=== PATIENT | female | born 1970 | race Caucasian/White ===

== ENCOUNTER 2019-05-09 01:05 | Outpatient (CLI) | payer MEDICARE, MEDICAID, SELFPAY ==
--- NOTE | 2019-05-09 17:30 | DI.MAMMO_ITS ---
EXAM: MG MAMMO SCREENING CLINICAL HISTORY: Screening, Z12.39. TECHNIQUE: Mammograms were interpreted according to the usual protocol including computer analysis w [employer] CAD system, tomosynthesis and C-view imaging. COMPARISON: February 2018 FINDINGS: Breasts are of moderate density with fairly symmetrical distribution of fibroglandular tissue. No do minant mass or clumped microcalcification is identified in either breast. Current examination compar ed with previous examinations including February 2018 and there has been no gross interval change in appe arance in comparison with the previous studies IMPRESSION: No specific evidence of malignancy at this time. Routine screening examinations are suggested at yea rly intervals due to the family history of breast carcinoma. Category 1, breast density category B. BI-RADS Cat 1 - Negative Breast Density - Category B - Scattered areas of fibroglandular density
== END 2019-05-09 01:25 ==
PROVIDERS: PCP Family Medicine; Visit Provider Nurse Practitioner Women's Health
DX: Z12.31 Encounter for screening mammogram for malignant neoplasm of breast (principal)
CPT/HCPCS: 77063; 77067

== ENCOUNTER 2020-03-18 13:37 | Outpatient (REF) | payer MEDICARE, MEDICAID, SELFPAY ==
--- NOTE | 2020-03-18 13:20 | PAPFT_PTH ---
PATIENT: Thao Sewell LOC: [facility] U#:[id number] AGE/SX: 50/F ROOM: RE03/18/[address]: SAMREEN Hanna : 1970 BED: DIS: 03/18/2020 SPEC #: [id number] RECD: 03/18/20 17:21 STATUS: DYLAN REMiguel Ángel #: [id number] MACEY: 03/18/20 13:[address]: Alejandra Faustin DEPT: [facility] Cytology RECD BY: Laverne George ENTERED: 03/18/20 17:21 SP TYPE: PAPFT OTHR DR: Tariq Barrientos Tissues: 1 - CX/ENDOCX FOR PAP SMEARS Procedures: PAP THIN PREP/[facility] Screening HPV DNA PROBE Comments: [id number]
== END 2020-03-18 13:57 ==
LOC: LBN 13:37
PROVIDERS: PCP Family Medicine; Visit Provider Nurse Practitioner Family
DX: Z12.4 Encounter for screening for malignant neoplasm of cervix (principal); Z11.51 Encounter for screening for human papillomavirus (HPV)
CPT/HCPCS: 88142; 87624

== ENCOUNTER 2020-06-10 00:36 | Outpatient (CLI) | payer MEDICARE, MEDICAID, SELFPAY ==
--- NOTE | 2020-06-10 15:07 | DI.MAMMO_ITS ---
EXAM: MG MAMMO SCREENING CLINICAL HISTORY: screening TECHNIQUE: Mammograms were interpreted according to the usual protocol including computer analysis w [employer] CAD system, tomosynthesis and C-view imaging. COMPARISON: FINDINGS: Breasts are of moderate density with fairly symmetrical distribution of fibroglandular tissue. No do minant mass or clumped microcalcification is identified in either breast. The current examination is compared with previous examinations including April 2019 and there has been no gross interval ch bee in appearance in comparison with the prior studies. IMPRESSION: No specific evidence of malignancy at this time. Routine screening examinations are suggested at yea rly intervals due to the family history of breast carcinoma. BI-RADS Category 1 - Negative Breast Density - Category B - Scattered areas of fibroglandular density
== END 2020-06-10 00:56 ==
PROVIDERS: PCP Family Medicine; Visit Provider Nurse Practitioner Family
DX: Z12.31 Encounter for screening mammogram for malignant neoplasm of breast (principal); Z80.3 Family history of malignant neoplasm of breast
CPT/HCPCS: 77063; 77067

== ENCOUNTER 2020-12-08 02:40 | Outpatient (CLI) | payer MEDICARE, MEDICAID, SELFPAY ==
--- NOTE | 2020-12-08 06:45 | DI.US_ITS ---
EXAM: US ABD PELV TRANSVAG NON-OB CLINICAL HISTORY: abd and pelvic pain TECHNIQUE: Ultrasound of the pelvis was performed both transabdominal and transvaginal. COMPARISON: FINDINGS: UTERUS: Measures 6.5 cm length x 2.2 cm AP x 3.8 cm wide. There are no uterine fibroids. Endometrial thickness measures multiple small hyperechoic foci are noted in the endometrium, either p olyps or possibly calcifications appear. There is no fluid in the endometrial canal. CERVIX: 4 millimeter nabothian cyst RIGHT OVARY: Measures 2.9 x 2.1 x 1.6 cm No significant cysts nor masses evident in the right ovary. Small follicular cysts noted. Less than cm. LEFT OVARY: Measures 3 x 2.7 x 1.6 cm No significant cysts nor masses evident in the left ovary. CUL-DE-SAC: No free fluid evident. ABDOMEN: There is no ascites. The gallbladder is surgically absent. Common hepatic duct was not able be visu alized. Patient apparently not NPO. The liver is echogenic implying steatosis. No obvious discrete focal hepatic lesions evident on these images. Visualized pancreas appears unremarkable. The pancr eatic duct is not dilated. Both kidneys appear unremarkable. No hydronephrosis. Spleen is not enla rged. The entire abdominal aorta was not able to be visualized due to bowel gas. Visualized IVC was patent IMPRESSION: 1. Hyperechoic foci noted in the endometrium. Possible polyps versus calcifications. No obvious [place] rine fibroids 2. No abnormal ovarian findings. 3. The gallbladder surgically absent. No obvious dilatation of the biliary tree although the common hepatic duct was apparently not able to be visualized on this study. 4. hepatic steatosis. Correlation with appropriate hepatic blood work recommended. No discrete foca l hepatic lesions evident on these images DATA REPOSITORY:
== END 2020-12-08 03:00 ==
PROVIDERS: PCP Family Medicine; Visit Provider Obstetrics & Gynecology
DX: R10.2 Pelvic and perineal pain (principal); R10.9 Unspecified abdominal pain; Z90.49 Acquired absence of other specified parts of digestive tract; K76.0 Fatty (change of) liver, not elsewhere classified
CPT/HCPCS: 76700; 76830; 76856